=== PATIENT | female | born 1990 | race Caucasian/White ===

== ENCOUNTER 2024-04-24 08:13 | Outpatient (REF) | payer OTHER, SELFPAY ==
--- OUTSIDE RECORDS SUMMARY | 2024-04-24 08:36 | XMS_ITS | Clinical Summary ---
Author Organization [facility] Address [address] [place] [address] Care Team Providers Care Knife Glazer Name Role Phone Reggie Riggs MD Primary Care Provider [phone] Allergies Active Allergy Reactions Criticality Noted Date Comments Penicillins 07/09/2015 Medications Medication Sig Dispensed Refills Start Date End Date Status sertraline (ZOLOFT) 50 MG tablet Take 2.5 tablets (125 mg total) by mouth daily. 0 Active buPROPion (WELLBUTRIN) 100 MG tablet Take 1.5 tablets (150 mg total) by mouth 2 (two) times a day. 0 Active Active Problems No known active problems Social History Tobacco Use Types Packs/Day Years Used Date Smoking Tobacco: Light Smoker Sex and Gender Information Value Date Recorded Sex Assigned at Female 08/13/2023 12:29 AM EDT Gender Identity Not on file Sexual Orientation Not on file Job Start Date Occupation Industry Not on file Not on file Not on file Last Filed Vital Signs Vital Sign Reading Time Taken Comments Blood Pressure 126/71 08/13/2023 6:11 AM EDT Pulse 71 08/13/2023 6:11 AM EDT Temperature 36.5 ??C (97.7 ??F) 08/13/2023 6:11 AM ED T Respiratory Rate 17 08/13/2023 6:11 AM EDT Oxygen Saturation 96% 08/13/2023 6:11 AM EDT Inhaled Oxygen Concentration - - Weight 77.1 kg (170 lb) 07/09/2015 9:13 PM EDT Height 162.6 cm (5' 4 ) 07/09/2015 9:13 PM EDT Body Mass Index 29.18 07/09/2015 9:13 PM EDT Plan of Treatment Health Maintenance Due Date Last Done Comments Hepatitis B Vaccines (1 of 3 - 3-dose series) 1991 Hepatitis C Screening 1991 COVID-19 Vaccine (#1) 1991 Pneumococcal Vaccine (1 of 2 - PCV) 1997 Depression Screening 2003 Preventative Health Evaluation 2009 DTap / Tdap / Td (1 - Tdap) 2010 Cervical Cancer Screening (P ap Smear) 2012 Influenza Vaccine (#1) 2023 04/23/2018 RSV Ped < 20 months Aged Out No longe r eligible based on patient's age to complete this topic Care Teams Knife Glazer Relationship Specialty Start Date End Date Reggie Riggs MD [address] [place] [address] PCP - General Internal Medicine 07/09/15
--- OUTSIDE RECORDS SUMMARY | 2024-04-24 08:36 | XMS_ITS ---
Author Name [facility] Organization Unknown Results Test Name/Text Value Interpretation Date Range Source SQUAMOUS NO./AREA URNS LPF 3/LPF Normal [id number] 0 - 5 [facility] RBC number/area UrnS Auto 3/HPF Normal [id number] 0 - 3 [facility] WBC number/area UrnS Auto 0/HPF Normal [id number] 0 - 5 [facility] Clarity Ur Refract.auto CLEAR Normal [id number] [facility] Prot Ur Ql Strip.auto NEGATIVE Normal [id number] - [facility] Glucose Ur Ql Strip.auto NEGATIVE Normal [id number] - [facility] Nitrite Ur Ql Strip.auto NEGATIVE Normal [id number] - [facility] Hgb Ur Ql Strip.auto MODERATE Abnormal [id number] - [facility] Ketones Ur Ql Strip.auto NEGATIVE Normal [id number] - [facility] Leukocyte esterase Ur Ql Strip.auto NEGATIVE Normal [id number] - [facility] Sp Gr Ur Strip.auto 1.02 Normal [id number] 1.005 - 1.03 [facility] pH Ur Strip.auto 6 Normal [id number] 4.5 - 8 [facility] SPECIMEN SOURCE XXX URINE CLEAN CATCH Normal [id number] [facility] PROT SERPL MCNC 7.3g/dL Normal [id number] 6.4 - 8.5 [facility] BILIRUB SERPL MCNC 0.2mg/dL Below low normal [id number] 0 .3 - 1 [facility] ALBUMIN/GLOB SERPL MRTO 1.3 Normal [id number] [facility] AST SERPL [facility] 12U/L Normal [id number] 5 - 40 [facility] ALBUMIN SERPL BCG MCNC 4.1g/dL Normal [id number] 3.5 - 5 [facility] ALP SERPL-CCNC 47U/L Normal [id number] 34 - 104 [facility] ALT SERPL [facility] 10U/L Normal [id number] 7 - 52 [facility] BILIRUB DIRECT SERPL MCNC 0mg/dL Normal [id number] 0 - 0.2 [facility] CREAT SERPL [facility] 1.1mg/dL Above high normal [id number] 0. 5 - 1 [facility] CALCIUM SERPL MCNC 9.4mg/dL Normal [id number] 8.4 - 10 .2 [facility] SODIUM SERPL SCNC 137mmol/L Normal [id number] 135 - 145 [facility] ANION GAP SERPL [facility] 8mmol/L Normal [id number] 5 - 14 [facility] Glomerular filtration rate/1.73 sq M. predicted 68 Normal [id number] 60 - [facility] HCO3 SER SCNC 22mmol/L Below low normal [id number] 24 - 3 2 [facility] GLUCOSE SERPL MCNC 84mg/dL Normal [id number] 70 - 199 [facility] BUN SERPL MCNC 12mg/dL Normal [id number] 7 - 17 [facility] CHLORIDE SERPL SCNC 107mmol/L Normal [id number] 98 - 10 7 [facility] POTASSIUM SERPL SCNC 3.7mmol/L Normal [id number] 3.5 - 5.1 [facility] Amphet Ur Ql Scn NEGATIVE Normal [id number] - [facility] Barbiturates Ur Ql Scn NEGATIVE Normal [id number] - [facility] Cannabinoids Ur Ql Scn NEGATIVE Normal [id number] - [facility] BZE Ur Ql Scn NEGATIVE Normal [id number] - [facility] PLATELET NO. BLD AUTO 280K/uL Normal [id number] 150 - 450 [facility] RBC NO. BLD AUTO 4.1M/uL Below low normal [id number] 4.2 - 5.4 [facility] NUCLEATED RBC 0% Normal [id number] 0 - 1 [facility] LYMPHOCYTES NO. BLD AUTO 3.1K/uL Normal [id number] 1 - 3.2 [facility] EOSINOPHIL NO. BLD AUTO 0.4K/uL Normal [id number] 0 - 0.5 [facility] MCH RBC QN AUTO 31pg Normal [id number] 25 - 33 [facility] MCHC RBC AUTO MCNC 34.7g/dL Normal [id number] 32 - 36 [facility] MONOCYTES NFR BLD AUTO 5.3% Normal [id number] 2 - 12 [facility] IMMATURE GRANULOCYTE, ABSOLUTE 0.07k/uL Normal [id number] - 0.1 [facility] LYMPHOCYTES NFR BLD AUTO 19.9% Below low normal [id number] 20 - 48 [facility] EOSINOPHIL NFR BLD AUTO 2.3% Normal [id number] 0 - 6 [facility] HGB BLD MCNC 12.7g/dL Normal [id number] 12.5 - 16 [facility] SMH NEUTROPHILS NO. BLD AUTO 11.2K/uL Above high normal [id number] 1.8 - 7.8 [facility] WBC NO. BLD AUTO 15.6K/uL Above high normal [id number] 4 - 10.5 [facility] BASOPHILS NFR BLD AUTO 0.4% Normal [id number] 0 - 2 [facility] MONOCYTES NO. BLD AUTO 0.8K/uL Normal [id number] 0 - 0.8 [facility] MCV RBC AUTO 89.3fL Normal [id number] 78 - 100 [facility] SM NEUTROPHILS NFR BLD AUTO 71.7% Normal [id number] 44 - 74 [facility] IMMATURE GRANULOCYTE, PERCENT 0.4% Normal [id number] 0 - 1 [facility] BASOPHILS IN BLOOD BY AUTOMATED COUNT 0.1K/uL Normal [id number] 0 - 0.2 [facility] PMV BLD AUTO 10fL Normal [id number] 7.4 - 11.4 [facility] RDW RBC AUTO RTO 12.8% Normal [id number] 12.1 - 16. 2 [facility] HCT VFR BLD AUTO 36.6% Below low normal [id number] 37 - 47 [facility] History of Medication Use Medication Directions Dispensed Refills Start Date End Date Stat acetaminophen (TYLENOL) tablet 975 mg 975 mg, Oral, Once, On 08/13/23 at 0845, For 1 dose 08/13/2023 08/13/2023 completed sertraline (ZOLOFT) 50 MG tablet Take 2.5 tablets (125 mg total) by mouth daily. active LORazepam (ATIVAN) tablet 1 mg 1 mg, Oral, Once, On 08/12/23 at 2330, For 1 dose 08/13/2023 08/13/2023 completed Problems Problem Status Onset Date Problem Type Date of Resoluti on Source Depression active EncounterDiagnosisAct REPLACED BY [facility] Anxiety active EncounterDiagnosisAct REPLACED BY [facility]
--- OUTSIDE RECORDS SUMMARY | 2024-04-24 08:36 | XMS_ITS | Data Portability ---
Author Organization [place] - [facility], [facility] Address [id number] [place] [address] Assessment Encounter Date Assessment Date Assessment LastModified by Organization Details LastModified Time 08/24/2014 08/24/2014 24 yo female her for colpo after recent ASCUS pap, hx of LEIGHA 1-2 Not available 08/24/2014 13:56:25 01/28/2015 01/28/2015 24 yo G0 here for annual/pap Not available 01/28/2015 14:32:08 03/12/2015 03/12/2015 24 yo female ASCUS, HPV positive, here for colpo, f/u ECC and biospy Not available 03/12/2015 10:57:06 Plan of Treatment Reminders Order Date Submit Date Provider Last Modified By Organization Details Last Modified Time Details Appointments None recorded. Lab surgical pathology study - #3, ECC 2015 016 DANETTE Not available 6 16:29:18 pap, IG + reflex HPV 2014 015 DANETTE Not available 5 14:50:28 surgical pathology study 2014 015 DANETTE Not available 5 10:24:25 pap, IG + reflex HPV 2014 015 DANETTE Not available 5 11:06:21 HPV genotypes 16, 18, 45, unspecifie d specimen 2014 015 DANETTE Not available 5 11:06:21 Referral None recorded. Procedures None recorded. Surgeries None recorded. Imaging None recorded. Medication Orders Viorele (28) 0.15 mg-0.02 mg (21)/0.01 mg (5) tablet 2014 015 INTERFACE [id number], [address], [place], [address], 5 14:34:59 Patient TargetsNo targets recorded. Patient Instructions Encounter Date Encounter Id Patient Instructions Last Modified By Organization Details Last Modified Time 01/28/2015 [id number] Patient presents for a well woman exam. Her history is unremarkable and her exam is normal. She is less than 26 years old so she has received GC/Chl screening and Pap smear screening as per guidelines of every three years for cytology review with reflex HPV testing if the results are ASCUS. She has been counseled regarding control and safe sex as well as monthly self-breast exams. She has been told to reschedule a well woman Corporate Operations Compliance Manager exam in one year and to call us with any question or concerns regarding her health and welfare. Not available 01/28/2015 14:32:08 Reason for Referral None Reported. Results Created Date Observation Date Name Description Value Unit Range Abnormal Flag Note LastModifiedBy Organization Detail LastModifiedTime 07/29/19 15 07/29/2014 pap, IG + refle x HPV report abnormal GYNEC OLOGI UMESH CYTOL OGY REPOR T THINP REP PAP TEST WITH HPV REFLE X SPECI MEN ADEQU ACY: SATIS FACTO RY FOR EVALU ATION ; ENDOC ERVIC AL/TR ANSFO RMATI ON ZONE COMPO NENT PRESE NT. INTER PRETA TION: AT YPICA L SQUAM OUS [place] [id number] . Elect livier reyes Gladis d Out: MD SARAHI BARBER Y, [place]( [place]) CLINI UMESH INFOR MATIO N: LMP: NI Sourc e: CERVI UMESH Numbe r of vials /slid es submi tted 1 Diagn osis / ICD-9 795.0 4 Abnor mal Pap Date NI Autom ated presc reeni ng of all liqui d based speci mens is perfo rmed by the ThinP rep Imagi ng Syste m, unles s other bell state d. The Pap test is a scree drake test with an inher ent false negat josefa rate. Testi ng perfo rmed at [facility] , [address], [place] [address] CLIA [id number] CL-PO [id number]. Not Available [facility] [address] [place], [address], 07/31/2014 11:06:21 07/29/19 15 07/30/2014 HPV DNA, high- risk HPV result Positi ve negati ve abnormal APTIM A HPV assay detec ts 14 high risk HPV types (HPV 16,18 ,31,3 3,35, 39,45 , 51,52 ,56,5 8,59, 66,68 ). The assay is FDA appro abigail for testi ng ThinP rep liqui d Pap vials but not FDA appro abigail for detec ting HPV in SureP ath liqui d Pap speci mens. In-ho use valid ation has shown the assay can detec t all HPV types from this sourc e. Not Available [facility] [address] [place], [address], 07/31/2014 11:06:21 07/29/19 15 07/31/2014 HPV genot ypes 16, 18, 45, unspe cifie d speci men HPV genotype 16 Negati ve negati ve Not Available [facility] [address] [place], [address], 07/31/2014 11:06:21 07/29/19 15 07/31/2014 HPV genot ypes 16, 18, 45, unspe cifie d speci men HPV genotype 18/45 Negati ve negati ve Not Available [facility] [address] [place], [address], 07/31/2014 11:06:21 07/29/19 15 07/31/2014 HPV genot ypes 16, 18, 45, unspe cifie d speci men comment Test perfo rmed by Holog ic APTIM A HPV 16,18 /45 assay which is based on nucle ic acid ampli ficat ion for detec tion of E6/E7 viral messe nger RNA of human papil lomav irus types 16 and 18/45 in cervi umesh speci mens. Not Available [facility] [address] [employer], [place], [address], 07/31/2014 11:06:21 08/25/19 15 08/26/2014 surgi umesh patho logy study report Surgi umesh Patho logy Repor t DIAGN OSIS UTERI NE CERVI X, BIOPS Y: SMALL FRAGM ENT OF UNREM ARKAB LE ENDOC ERVIC AL GLAND ULAR MUCOS A. NEGAT JOSEFA FOR DYSPL HUGH (SEE COMME NT). El ectro nical ly Gladis d Out * BJ MILLER MD COMME NT Patie nt's previ ous Pap smear ([id number]) was inter prete d as ASCUS with posit josefa HPV DNA testi ng. Luis nued f[place]. [id number] Clini umesh Diagn osis and Histo ry: 795.0 1 Papan icola ou smear of cervi x with atypi umesh squam ous cells of undet ermin ed signi fican ce (ASCU S). Tissu e(s) Submi tted: CX BX / COLPO Gross Descr iptio n: The conta iner is label ed with the patie nt's name, Dotty Perrin ea. Speci men type indic ated on conta iner as biops y colpo . The speci men is recei abigail in forma ovidio and consi sts of one piece of soft mcfarlane tissu e mixed with mucus measu ring 0.4 x 0.3 x 0.1 cm, submi tted in toto in one casse tte label ed 1A. [place] Testi ng perfo rmed at [facility] , [address], [place] [address] CLIA [id number] CL-PO [id number]. Not Available [facility] [address] [place], [address], 08/26/2014 10:24:25 01/29/20 15 02/01/2015 pap, IG + refle x HPV report abnormal GYNEC OLOGI UMESH CYTOL OGY REPOR T THINP REP PAP TEST WITH HPV REFLE X SPECI MEN ADEQU ACY: SATIS FACTO RY FOR EVALU ATION ; ENDOC ERVIC AL/TR ANSFO RMATI ON ZONE COMPO NENT PRESE NT. INTER PRETA TION: AT YPICA L SQUAM OUS CELLS [place] [address] . Elect livier reyes Gladis d Out: MD NYLA LAWRENCE IN [place], [place]( CP) CLINI UMESH INFOR CAM N: LMP: NI Sourc e CERVI X Numbe r of vials /slid es submi tted 1 Diagn osis / ICD CODE Z01.4 19 Abnor mal Pap Date NI Autom ated presc reeni ng of all liqui d based speci mens is perfo rmed by the ThinP rep Imagi ng Syste m, unles s other bell state d. The Pap test is a scree drake test with an inher ent false negat josefa rate. Testi ng perfo rmed at [facility] t [facility] , [address] [place] [address] CLIA [id number] CL-PO [id number]. Not Available [facility] [address] [place], [address], 02/02/2015 14:50:53 01/29/20 15 02/02/2015 pap, IG + refle x HPV HPV result Positi ve negati ve abnormal APTIM A HPV assay detec ts 14 high risk HPV types (HPV 16,18 ,31,3 3,35, 39,45 , 51,52 ,56,5 8,59, 66,68 ). The assay is FDA appro abigail for testi ng ThinP rep liqui d Pap vials but not FDA appro abigail for detec ting HPV in SureP ath liqui d Pap speci mens. In-ho use valid ation has shown the assay can detec t all HPV types from this sourc e. Not Available [facility] [address] [facility], [place], [address], 02/02/2015 14:50:53 03/12/19 16 03/15/2015 surgi umesh patho logy study report Surgi umesh Patho logy Repor t DIAGN OSIS #1-UT ERINE CERVI X, BIOPS Y AT 2 O'RUBIO CK: INFLA MED ENDOC ERVIC AL GLAND ULAR MUCOS A, NEGAT JOSEFA FOR DYSPL HUGH. #2-UT ERINE CERVI X, BIOPS Y AT 7 O'RUBIO CK: INFLA MED ENDOC ERVIC AL GLAND ULAR MUCOS A, NEGAT JOSEFA FOR DYSPL HUGH. #3-EN DOCER VICAL CURET TINGS : INSUF FICIE NT QUANT ITY OF TISSU E FOR DIAGN OSTIC EVALU ATION . THE TISSU E DID NOT SURVI VE PROCE SSING . SEE COMME NT. El ectro nical ly Gladis d Out * RENA LI MD COMME NT Comme nt: Revie w of the prece ding Pap test ([id number] from 2014) shows atypi umesh squam ous cells that are not repre sente d in the biops y. Also, the detec tion of high- risk HPV DNA warra nts luis nued clini umesh follo wup. 00780 x 3 Clini umesh Diagn osis and Histo ry: R87.6 10 Atypi umesh squam ous cells of undet ermin ed signi fican ce on cytol ogic smear of cervi x (ASC- US). Tissu e(s) Submi tted: 1: CX BX 2 O'RUBIO CK 2: CX BX 7 O'RUBIO CK 3: ENDOC ERVIC AL CURET TING Gross Descr iptio n: #1 Conta iner is label ed with patie nt's name, Dotty Perrin ea. Noted on conta iner, 2 o'rubio ck biops y. The speci men is recei abigail in forma ovidio and consi sts of one piece of soft, mcfarlane tissu e measu ring 0.4 x 0.4 x 0.2 cm, which was submi tted in toto in one casse tte label ed 1A. #2 Conta iner is label ed with gemma nt's name. Noted on conta iner, 7 o'rubio ck biops y. The speci men is recei abigail in forma ovidio and consi sts of one piece , plus mucus , of soft mcfarlane tissu e measu ring 0.3 x 0.3 x 0.2 cm, which was submi tted in toto in one casse tte label ed 2A. #3 Conta iner is label ed with patiedward nt's name. Noted on req. endoc ervic al. The speci men is recei abigail in forma ovidio and consi sts of scant , irreg ular tissu e fragm ents admix ed with mucus and blood measu ring .1 cc, which was filte red and submi tted in toto in one casse tte label ed 3A. The speci men may not survi ve proce ssing . [place] Testi ng perfo rmed at [facility] , [address] [place] [address] CLIA [id number] CL-PO [id number] 7. Not Available [facility] [address] [place] [address], [facility] 03/15/2015 16:29:18 Result Notes Documentation Provider Name and Address Organization Details Recorded Time Pap, Ig + Reflex Hpv : ASCUS Pap/positive HPV Daina Buchanan [facility] 02/11/2015 15:42:14 Problems Name Problem SNOMED Code Status Onset Date Resolution Date Notes Provider Name and Address Organization Details Recorded Time Cervicovaginal cytology: High grade squamous intraepithelia l lesion or carcinoma 751629517 Active 2013 MARK MUIR MD [address] [place], [place] [address] 6 10:52:45 Migraine 76902273 Active 2013 MARK MUIR MD [address] [place] [address], [address] [place] [address], [address], [facility] 6 10:52:45 Atypical squamous cells of undetermined significance on cervical Papanicolaou smear 913722305 Active MARK MUIR MD [address], [address] [place] [address] 4, [facility] 6 10:57:05 Anxiety state 464445510 Active 2011 MARK MUIR MD [address], [address] [place] [address] 4, [facility] 6 10:52:45 Depressive disorder 91945748 Active 2007 MARK MUIR MD [address], [address] [place] [address] 4, [facility] 6 10:52:45 Problem Notes None recorded. Procedures Surgical History Date Name Laterality Status Provider Name and Address Organization Details Recorded Time 6 Colposcopy Procedure Note completed MARK MUIR MD [address] [place] [address], [address] [place] [address], [facility] 03/12/2015 10:56:12 5 Colposcopy Procedure Note completed MARK MUIR MD [address] [place] [address], [address] [place] [address], [facility] 08/24/2014 13:55:48 5 [id number] completed MARK MUIR MD [address] [place] [address], [address] [place] [address], [facility] 07/28/2014 13:13:18 4 Date of Last Pap Smear completed Kumar Marcelino [facility] 07/28/2014 09:54:43 Imaging Results None recorded. Procedure Notes None recorded. Medical Equipment None Reported. Allergies Allergen ID Allergen Name Allergen Category Reaction Reaction Severity Criticality Documentation Date Start Date Code Code System Note Provider Name and Address Organization Details Recorded Time 318958 Product containin g penicilli n (product) medicatio n Not available Not available Not available 06/20/20142007 86857 8001 SNOMED Not Available [facility] 5 14:45:29 Medications Name Sig Start Date Stop Date Status Note LastModified by Organization Details LastModified Time Prescript ion - New active Klonopin 0.5mg Not Available Not Available Not Available ciproflox acin 500 mg tablet active Not Available Not Available No t Available Metrogel Vaginal 0.75 % (37.5 mg/5 gram) INSERT 1 APPLICAT ORFUL BY VAGINAL ROUTE EVERY DAY FOR 5 DAYS AT BEDTIME 04/14 completed Not Available Not Available Not Available Depo-Prov era 150 mg/mL intramusc ular suspensio n INJECT 1 MILLILIT ER (150MG) BY INTRAMUS CULAR ROUTE EVERY 3 MONTHS 10/04 completed Not Available Not Available Not Available Prozac 20 mg capsule TAKE BY ORAL ROUTE 2 TIMES EVERY DAY 03/05 completed PRESCRIB ED ELSEWHER E Not Available Not Available Not Available mirtazapi ne 15 mg tablet TAKE 1 TABLET (15MG) BY ORAL ROUTE EVERY DAY BEFORE BEDTIME active Not Available Not Available No t Available Prozac 10 mg capsule TAKE 2 CAPSULE (20MG) BY ORAL ROUTE EVERY DAY 10/04 completed PRESCRIB ED ELSEWHER E Not Available Not Available Not Available sertralin e 50 mg tablet TAKE 1 TABLET BY ORAL ROUTE EVERY DAY active Not Available Not Available No t Available Viorele (28) 0.15 mg-0.02 mg (21)/0.01 mg (5) tablet TAKE 1 TABLET BY ORAL ROUTE EVERY DAY 2015 active Not Available Not Available Not Avai lable Vitals Date Recorded Body weight Systolic blood pressure Diastolic blood pressure Provider Name and Address Organization Details Last Updated DateTime 08/24/2014 19207.9639 4 g 112 mm[Hg] 80 mm[Hg] Janelle JEFF - [facility] 08/24/2014 13:38:16 Date Recorded Body weight Body mass index (BMI) Body height Systolic blood pressure Diastolic blood pressure Provider Name and Address Organization Details Last Updated DateTime 01/28/2015 21990.74 105 g 27.5 kg/m2 165.1 cm 124 mm[Hg] 80 mm[Hg] Omaira Lopez [facility] 5 14:17:42 Date Recorded Body weight Systolic blood pressure Diastolic blood pressure Provider Name and Address Organization Details Last Updated DateTime 03/12/2015 95431.7410 5 g 100 mm[Hg] 82 mm[Hg] [email or web address] [address] [facility], [address]rd Floor, [place], [address], [facility] 03/12/2015 10:24:11 Date Recorded Body weight Systolic blood pressure Diastolic blood pressure Provider Name and Address Organization Details Last Updated DateTime 07/28/2014 26778.5563 1 g 126 mm[Hg] 82 mm[Hg] Daina Dewayne [facility] 07/28/2014 12:59:33 Social History Question Answer Notes LastModified by Organizat ion Details LastModified Time Tobacco Smoking Status Current Every Day Smoker Kumar martinez, [facility] 07/28/2014 09:54:43 What Is Your Level Of Alcohol Consumption? Occasional Information not available 01/28/2015 How Much Tobacco Do You Smoke? 1 PPD omanfredi Information not available 07/28/2014 Sex: Unknown Functional Status Question Answer Note LastModified by Organization D etails LastModified Time What is your exercise level? None Information not available 01/28/2015 Mental Status None recorded. Family History Relationship Description Onset Age of this Age Resolved Age Notes LastModified by Organization Details LastModified Time Father Disorder of thyroid gland [email or web address] Not available 2014 14:13:46 Maternal Grandfather Hypertensive disorder lbooska Not available 2014 14:13:46 Maternal Grandmother Multiple myeloma lbooska Not available 2014 14:13:46 Maternal Grandmother Osteoporosis lbooska Not available 1 03/31/2014 14:13:46 Paternal Grandfather Hypertensive disorder lbooska Not available 2014 14:13:46 Paternal Grandfather Heart disease lbooska Not available 2014 14:13:46 Medical History Condition Response Benign breast disease Y Depression Y Anxiety Disorder Y Gynecological History Statement/Question Response Date of Last Pap Smear 12/08/2013 Obstetrics History GPAL:G 0 P 0 0 0 0 Immunizations Vaccine Type Date Status Note Provider Nam e and Address Organization Details Recorded Time HPV, quadrivalent 9 completed Not Available [facility] 06/22/2014 02:26:14 HPV, quadrivalent 8 completed Not Available [facility] 06/22/2014 02:26:14 HPV, quadrivalent 9 completed Not Available [facility] 06/22/2014 02:26:14 Past Encounters Encounter ID Performer Location Encounter Start Date Encounter Closed Date Diagnosis/Indication Diagnosis SNOMED-CT Code Diagnosis ICD10 Code Diagnosis Note [id number] [facility] [address] [place] [address] 07/28/2014 12:44:35 07/28/2014 13:27:38 Cervicovaginal cytology: High grade squamous intraepithelial lesion or carcinoma [id number] [facility] [address] [place] [address] 08/24/2014 13:14:02 08/25/2014 11:08:49 Atypical squamous cells of undetermined significance on cervical Papanicolaou smear 355977871 [id number] MARK MUIR MD [facility] [address] [place] [address] 01/28/2015 14:05:23 02/02/2015 11:00:46 Gynecologic examination 26083151 Z01.542 [id number] MARK MUIR MD [facility] [address] [place] [address] 03/12/2015 10:13:50 03/12/2015 15:24:55 Atypical squamous cells of undetermined significance on cervical Papanicolaou smear 118821750 R87.610 Health Concerns Section Related Observation LastModified by Organization Detai ls LastModified Time None Recorded Concern Status LastModified by Organization Details LastModified Time None Recorded Advance Directives Directive None Recorded Payers Encounter Date Sequence Insurance Name Policy Number Policy Eid Covered Member ID Eid Member ID Guarantor Name 07/28/2014 1 [employer] - CHOICE (POS II) [id number] Carri Weldon [id number] Ira Weldon 08/24/2014 1 [employer] - CHOICE (POS II) [id number] Carri Fisherride [id number] Ira Kirkbride 01/28/2015 1 [employer] - CHOICE (POS II) [id number] Carri Troncosokbride [id number] Ira Kirkbride 03/12/2015 1 [employer] - CHOICE (POS II) [id number] Carri Troncosokbride [id number] Ira Kirkbride Notes Date Note Type Note Provider Name and Address Organization Details Recorded Time 07/28/2014 text/html 24 yo female wit h hx pap was HGSIL. cervical biopsy LEIGHA 1-2, ECC neg. her for repeat pap MARK MUIR MD [address] [place] [address], [address] [place], [address], [facility] 07/28/2014 13:14:48 08/24/2014 text/html 24 yo female wit h history of LEIGHA 1-2, ECC neg 12/09. .ASCUS pap 08/10. pt had a 6 month f/u due to metaplasia on path findings, discussed with pathologist, thus close follow up. pt is currently a smoker, discussed cutting back with a goal of quitting. 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 MARK MUIR MD [address] [place] [address], [address] [place], [address], [facility] 08/24/2014 15:19:31 01/28/2015 text/html [facility] Annual GYNReported bypatient.Menstrua l cycle:Normal menses Urinary symptoms:No hematuria; No incontinence Vulva:No genital lesion Vagina:Normal vaginal discharge Breast:No breast pain; No breast lump; No nipple discharge Sexual complaints:No sexual complaints; No pain during intercourse; Normal libido Psychological symptoms:No anxiety; No PMDD;Depression Preventive measures:Encourage self breast examination; Encourage regular exercise; Encourage no tobacco use; Followed with Q3 year pap smear and high risk HPV typing 24 yo G0 for annual, hx of abn pap cannot rule out HGSIL 2013, f/u neg, rpt pap today. wishes to continue ocp. hx of depression on Zoloft, thinks she needs a higher dose, will f/u with pcp. smoking 5 cig/day down from 1ppd MARK MUIR MD [address] [facility], [address]rd Floor, [place], [address], [facility] 01/28/2015 14:32:35 03/12/2015 text/html 24 yo female wit h hx of ASCUS HPV pap 02/09, previous pap 12/09 cannot rule out HGSIL, colpo neg for LEIGHA 2 or 3 in 2013, her for colposcopy, bx 2, 7oclock ECC. encouraged smoking cessation, given hx of abn pap MARK MUIR MD [address] [facility], [address], [place], [address], [facility] 03/12/2015 11:02:46 OBGyn Episode No OBEpisode recorded.
--- OUTSIDE RECORDS SUMMARY | 2024-04-24 08:36 | XMS_ITS | Clinical Summary ---
Author Organization [facility] ity Address [address] [place] [address] Care Team Providers Care Seed Analyst Name Role Phone Reggie Riggs MD Primary Care Provider [phone] Medical History Medical History Date Comments Anxiety DX:Anxiety Depressed DX:Depressed Social History Tobacco Use Types Packs/Day Years Used Date Smoking Tobacco: Light Smoker Comments Unknown Sex and Gender Information Value Date Recorded Sex Assigned at Not on file Legal Sex Female 9:23 PM EST Gender Identity Not on file Sexual Orientation Not on file Obstetrics History Plan of Treatment Health Maintenance Due Date Last Done Comments DTaP,Tdap,and Td Vaccines (1 - Tdap) 2010 Hepatitis B Vaccines (1 of 3 - 19+ 3-dose series) 2010 Pneumococcal Vaccine: Pediat rics (0 to 5 Years) and At-Risk Patients (6 to 64 Years) (1 of 2 - PCV) 2010 Cervical Cancer Screening: P ap Smear 2012 Cholesterol Screening (Lipid Panel) 01/28/2022 Depression Screening 01/28/2022 HIV Screening 01/28/2022 Hepatitis C Screening 01/28/2022 Social Influencers of Health Screening 01/28/2022 COVID-19 Vaccine (2023-2 5 season) 2023 Influenza Vaccine (#1) 2023 HIB Vaccines Aged Out No longer eligi ble based on patient's age to complete this topic HPV Vaccines Aged Out No longer eligi ble based on patient's age to complete this topic Hepatitis A Vaccines Aged Out No long er eligible based on patient's age to complete this topic IPV Vaccines Aged Out No longer eligi ble based on patient's age to complete this topic MMR Vaccines Aged Out No longer eligi ble based on patient's age to complete this topic Meningococcal ACWY Vaccine Aged Out N o longer eligible based on patient's age to complete this topic Meningococcal B Vacine Aged Out No lo nger eligible based on patient's age to complete this topic RSV Immunization Patients Un emiliano 20 months Aged Out No longer eligible b ased on patient's age to complete this topic Varicella Vaccines Aged Out No longer eligible based on patient's age to complete this topic Care Teams Seed Analyst Relationship Specialty Start Date End Date Reggie Riggs MD [address] [facility] [address] [place] [id number] PCP - General Internal Medicine 07/09/15
[2024-04-24 08:49] LABS: MANUAL DIFF FLAG NO
[2024-04-24 09:20] LABS: Basophils Absolute Auto 0.1 X10*3/uL (0.0-0.2); Basophils Percent Auto 0.6 % (0-2); Eosinophils Absolute Auto 0.3 X10*3/uL (0.0-0.4); Eosinophils Percent Auto 2.6 % (0-4); Hematocrit 38.6 % (37.0-47.0); Hemoglobin 13.3 g/dl (12.0-16.0); Imm Gran Abs Auto 0.03 X10*3/uL (0.00-0.03); Imm Gran Pct Auto 0.3 % (0.0-0.4); Lymphocytes Absolute Auto 2.7 X10*3/uL (1.2-4.9); Lymphocytes Percent Auto 24.8 % (20-40); Mean Corpuscular HGB Conc 34.5 g/dl (31.0-35.0); Mean Corpuscular Hemoglobin 31.1 pg (27.0-33.0); Mean Corpuscular Volume 90.2 fL (80.0-98.0); Mean Platelet Volume 10.9 fL (9.4-12.3); Monocytes Absolute Auto 0.6 X10*3/uL (0.1-1.2); Monocytes Percent Auto 5.6 % (2-11); Neutrophils Absolute Auto 7.2 x10*3/uL (2.0-8.3); Neutrophils Percent Auto 66.1 % (45-73); Platelet Count 307 X10*3/uL (160-400); Red Blood Count 4.28 X10*6/uL (4.20-5.50); Red Cell Distribution Width 13.2 % (11.0-16.0); White Blood Count 10.9 X10*3/uL (4.8-10.8)
[2024-04-24 09:27] LABS: UPreg QC Valid YES; Urine Pregnancy NEGATIVE (NEGATIVE)
[2024-04-24 09:32] LABS: Appearance Urine Clear; Color Urine Yellow; Glucose Urine UA Negative (Negative); Leukocyte Esterase Urine Negative (Negative); Nitrite Urine Negative (Negative); PH 5.5 (5.0-9.0); UMIC TRIGGER UA YES; Urine Blood Moderate (2+) (Negative); Urine Ketones Negative (Negative); Urine Protein Negative (Neg-Trace)
[2024-04-24 09:39] LABS: Estimated Average Glucose 97 mg/dL; Hemoglobin A1C 108.7506 umol/L; Total Hemoglobin (HGBA1C) 3444.8736 umol/L
[2024-04-24 09:39] LABS: Bacteria Urine None Seen (None Seen); Hyaline Casts Urine 0-2 /LPF (0-2); RBC Urine 0-2 /HPF (0-2); Squamous Epithelial Cell Urine 0-2 /HPF (0-2); WBC Urine 0-5 /HPF (0-5)
[2024-04-24 09:54] LABS: Rheumatoid Factor < 13.0 IU/mL (<15.0)
[2024-04-24 09:59] LABS: Erythrocyte Sedimentation Rate 12 MM/HR (0-20)
[2024-04-24 10:02] LABS: Parathyroid Hormone Intact 60.3 pg/mL (8.7-77.1)
[2024-04-24 10:05] LABS: Alanine Aminotransferase 29 U/L (0-31); Albumin Level 4.4 g/dL (3.5-5.0); Alkaline Phosphatase 60 U/L (39-117); Anion Gap 11 (12-20); Aspartate Amino Transferase 20 U/L (5-31); Bilirubin Total 0.2 mg/dL (0.0-1.0); Blood Urea Nitrogen 12 mg/dL (9-16); Calcium 9.4 mg/dL (8.4-10.2); Carbon Dioxide 23 mmol/L (22-29); Chloride 109 mmol/L (96-108); Cholesterol 183 mg/dL (<200); Estimated Glomerular Filt Rate > 60; Glucose Fasting 95 mg/dL (60-99); HDL Cholesterol 41 mg/dL (>40); Iron 37 mcg/dL (30-160); LDL Cholesterol Calculated 126 mg/dL (<100); Magnesium 2.1 mg/dL (1.6-2.6); Percent Iron Saturation 13 % (15-50); Phosphorus 3.4 mg/dL (2.7-4.5); Sodium 139 mmol/L (135-145); Total Iron Binding Capacity 276 mcg/dL (228-428); Triglycerides 82 mg/dL (<150); Unsaturated Iron Binding 239 ug/dL
[2024-04-24 10:24] LABS: Free T4 (Free Thyroxine) 0.84 ng/dL (0.71-1.85); Thyroid Stimulating Hormone 2.61 uIU/mL (0.32-4.0); Vitamin D 25-OH Total 8.3 ng/mL (>30)
[2024-04-24 10:28] LABS: Vitamin B12 1057 pg/mL (200-900)
[2024-04-25 18:53] LABS: Homocysteine 12.6 umol/L (<10.4)
[2024-04-28 05:58] LABS: Methylmalonic Acid 82 nmol/L (55-335)
[2024-04-29 14:28] LABS: ANA Pattern 2 Nuclear, Speckled; ANA Titer 2 1:40 titer; Anti Nuclear Antibody Pattern Nuclear, Homogeneous; Anti Nuclear Antibody Screen POSITIVE (NEGATIVE)
[2024-05-03 07:44] LABS: Vitamin B1 14 nmol/L (8-30)
== END 2024-04-24 08:14 | disposition home or self-care (01) ==
LOC: HO.LAB 08:13
PROVIDERS: PCP Internal Medicine; Visit Provider Psychiatry & Neurology Psychiatry
DX: F39 Unspecified mood [affective] disorder (principal); F59 Unspecified behavioral syndromes associated with physiological disturbances and physical factors; F41.9 Anxiety disorder, unspecified; Z13.1 Encounter for screening for diabetes mellitus
CPT/HCPCS: 36415; 80053; 80061; 81001; 81025; 82306; 82607; 82746; 83036; 83090; 83540; 83735; 83921; 83970; 84100; 84425; 84439; 84443; 84550; 85025; 85652; 86038; 86039; 86431

== ENCOUNTER 2024-04-29 12:15 | Outpatient (RCR) | payer OTHER, SELFPAY ==
[2024-04-16 09:40] VITALS: BMI 32.8
[2024-04-16 09:41] VITALS: BP 116/70; PULSE 80; TEMP 37.4
--- NOTE | 2024-04-16 14:16 | PC.ADMIT ---
Patient is a 34 year old female who was referred to [facility] by [facility] ER crisis team. Patient self presented to crisis while at work at [employer] d/t increased depression, anxiety, and PTSD sxs. Patient report stresses include challenges with her 6 year old daughter who struggles with Autism and 6 year old child who she describes is going through the, terrible twos . She also reports during the holidays she and her were arguing more. She also stated she struggles with past trauma and has abandonment issues feelng her family is going to leave her even though on some level she does not think this is true. Patient reports she changed her work schedule to working mostly weekends in order to attend [facility]. Patient is alert and oriented x4. She is calm and cooperative. She presented with depressed mood and anxious affect. She denied SI, no HI. She was given a copy of her safety plan if needed. She denied having any issues with substances use. She does reports smoking cigarettes one PPD. She does not want to quit at this time however I gave her information/education about smoking cessation when she is ready. She reports she eventually like to quit for her health and for financial reasons. She reports adverse effects from Wellbutrin, nicotine gum and lozengers. Patient's medications reconciled with patient and patient's pharmacy. Patient reports taking medications as prescribed. Medication education provided. Patient is interested in medication changes while at [facility].
--- NOTE | 2024-04-17 15:15 | HO.PHP ---
Client's case has been opened and reviewed in team.
--- NOTE | 2024-04-18 14:20 | HO.PHP ---
PHP staff member faxed over the referral for a med provider at the [facility] location in [place]. PHP staff member is awaiting on a phone call with the scheduled appointment dates and times.
--- NOTE | 2024-04-18 18:39 | HO.PS.ADMBH ---
HPI Date of Service: 04/18/24 Chief Complaint: unspecied anxiety d/o Sources of Information: patient interviewed, chart reviewed and crisis/core team assessment reviewed HPI Narrative: This is the first PHP admission for this employed, 34 yo female with history of anxiety, depression who was referred by [facility] for recent worsening of mood, anxiety, impacting her ability to function and cope with stress. ?It is been a lot of anxiety and depression for as long as I can remember my mental health relapsed since being in the ICU. I just been feeling not worthy. I'm unable to function, a lot of anhedonia and just being paralyzed from anxiety, it has been particularly bad in the past month. I never want to feel like this. .. just a lot of self sabotage . Says she spends a lot of time getting into my head anticiptory anxiety, fears, and then projecting on other people and I am usually wrong . She says she has been assuming the worsen in others, assuming they dont care or just doing a lot of projecting of her own insecurities, and appears to have insight into her thoughts and behaviors. She noticed she was having more problems since the holidays, me and my have been having a hard time getting along we also have a lot of stress with young children, our 6-year-old is autistic and our 2 year old is in early intervention (for developmental delays). Appetite has been fair she has been eating ?okay there is a remote history of bulimia in high school but that had stopped in college was just periods of poor appetite on and off usually related to stress no change in her weight sleep is reportedly fine she denies any SI no issues with irritability or aggression denies any history of AH or VH which she reports seldom drinking, denies any alcohol or substance abuse history. she is currently on 125 mg of Zoloft and appears to tolerate this well has been some has been helpful in past is not sure how helpful it is at the moment Past Psychiatric History: No previous IPLOC, PHP, respite or detox admissions SA: denies SHB: denies EDB: remote hx of bulemia in HS, sporadic restrictive behaviors and periods of low appetite in college, Denies EDB in recent years Previous trials: Prozac (in HS), Remeron, (angry), Buspar (brain zaps), Wellbutrin XL (felt worse, SI, agitated), hydroxyzine (sedating), Benadryl, Ativan a few times as prn for panic sx, Zoloft (current) h/o of BCPs being helpful for mood in past, although toward end of that time period, some of depression sx were returning and then ended up getting off BCPs, she is now on an IUD No prior SNRI trials, no mood stabilizers CURRENT MEDICATIONS: sertraline 125 mg qd Tylenol prn ibuprofen PMFSH Medical History (Updated 04/22/24 @ 12:11 by Bhumi Coronado MD) Anemia Joint pain Narrative: Struggles with joint and muscle pain Joint pain in hips ankles consistently, sometimes elbows and shoulders generalized myalgias, sometimes related to stress other times seems random Fatigue History of anemia Status post LEEP procedure, has been cleared by [employer] Denies seizures Denies concussions or TBI h/o BCP x 20 yrs - is sexually active (on IUD) LMP 4 weeks ago on 03/21 Ht: 5'5 Wt: 195 lbs ALL: PCN, Wellbutrin (AE: SI, agitation), nicotine gum Family History: Alcohol issues in both parents, especially her mother Social History: , 2 children ages 6 and 2 Lives at home with family Employed, works in ICU as RN at [employer] Substance History: alcohol use: seldom drinks alcohol, no more than 3 to 4 times a year, denies any other substance use Diagnostics Vital Signs (24Hr): BMI result Body Mass Index 32.8 Meds/Allergies Meds Home Medications ?Medication ?Instructions ?Recorded ?Confirmed ?Type acetaminophen 500 mg tablet 1,000 mg PO Q6H PRN Pain 04/16/24 04/16/24 History ibuprofen 800 mg tablet 800 mg PO Q6H PRN Pain 04/16/24 04/16/24 History sertraline 100 mg tablet 100 mg PO DAILY 04/16/24 04/16/24 History sertraline 25 mg tablet 25 mg PO DAILY 04/16/24 04/16/24 History Allergies Allergies Allergy/AdvReac Type Severity Reaction Status Date / Time Penicillins [PCN] Allergy Rash Verified 04/16/24 09:40 bupropion [From Wellbutrin] AdvReac Suicidal Verified 04/16/24 14:24 thoughts. Nicotine gum AdvReac Throat Uncoded 04/16/24 14:24 burning sensation. Nicotine Lozengers AdvReac Throat Uncoded 04/16/24 14:24 burning sensation. Mental Status Exam Mental Status Exam Narrative: Alert, oriented, in no acute distress. Calm, cooperative, engaged. No psychomotor agitation or neurovegetative retardation. Eye contact maintained. Mood anxious, affect variable, mood congruent. Speech normal. Thought process linear, coherent. Thought content related to stressors, denies any hopelessness or SI. Denies any aggressive ideation or HI. No paranoia or delusional content elicited. No evidence of psychosis. Insight and judgment - fair but adequate. Assessment & Plan Assessment & Plan (1) MDD (major depressive disorder): Status: Acute Code(s): F32.9 - Major depressive disorder, single episode, unspecified (2) Eating disorder: Status: Acute Code(s): F50.9 - Eating disorder, unspecified (3) Anxiety: Status: Acute Code(s): F41.9 - Anxiety disorder, unspecified Plan Admit to [facility] VS reviewed: cali, BP 116/70;?80 bpm continue other regular medications?- sertraline 125 mg qd may augmentation with a TCA or with Lyrica which would address anxiety, pain or switching to an SNRI or Savella less likely considerations would include modafinil if helpful to augment mood, energy Routine lab work to check TFTs, AI panel, PTH, nutritional panel EKG, routine for baseline QTc for medication considerations as indicated UDS as indicated MassPat reviewed Continue to monitor as per protocol Patient educated on: diagnosis, medication risk/benefits and medical condition Informed Consent: understands Reason for continued partial hosp. stay Substantial Risk for: inability to function and med/psych decompensation Certification I certify that partial hospital treatment is medically necessary due to the symptoms and problems resulting from the patient's mental illness and the failure to treat the patient at the partial hospital level of care would likely result in the patient requiring inpatient psychiatric care which could not be prevented at a less intensive level of care. Time Spent With Patient Time: Total time managing care of this patient today __90__ minutes.
--- NOTE | 2024-04-21 07:33 | HO.PHP ---
[facility] staff member received the appointment dates and times from [facility]: Ira has an intake appointment scheduled on May 06, 2024 at 10 AM with Cortney Marroquin at [address] [place] [address], in [place], [place] . Ira has a med provider appointment scheduled for May 30, 2024 at 9 AM with Scar Yeager via telehealth.
--- NOTE | 2024-04-22 08:41 | HO.PHP ---
Ira left a voicemail stating that she won't be in attendance to program today due to being ill. Ira expressed that she would be in attendance to program tomorrow.
--- NOTE | 2024-04-25 18:28 | P.PNPSP_ITS ---
Subjective Subjective Date of Service: 04/25/24 Reason For Visit: unspecied anxiety d/o Interim History: Patient seen for follow-up today. Reports doing better anxiety has been pretty good, more manageable. She has tolerated increase in Zoloft to 150 mg daily and feels it has been helpful for her mood and anxiety. Denies any hopelessness or SI. Appetite stable. Maintaining ADLs. Sleep has been not optimal due to time constraints as patient continues to work part-time while she is at the program she picked up a shift last night from 7pm until 3am, and slept a few hours before coming in for program this morning. Feels tired but able to manage since she is ?used to it? works as a nurse in the ICU. Denies any issues with work says she feels supported by her colleagues. Denies any new issues or acute events or concerns. She is interested in starting on guanfacine as we had previously discussed to especially help with body anxiety as well as cognition we will plan to start in the afternoon. Mental Status Exam Mental Status Exam Narrative: Alert, oriented, in no acute distress. Calm, cooperative, appears tired but alert and engaged. Eye contact maintained. Mood less anxious, affect variable, mood congruent. Speech normal. Goal-directed, future-oriented, denies any hopelessness or SI. Denies any aggressive ideation or HI. No evidence of psychosis. Insight and judgment intact. Diagnostics Vital Signs (24Hr): BMI result Body Mass Index 32.8 Assessment & Plan Assessment & Plan (1) MDD (major depressive disorder): Status: Acute Code(s): F32.9 - Major depressive disorder, single episode, unspecified (2) Anxiety: Status: Acute Code(s): F41.9 - Anxiety disorder, unspecified (3) Eating disorder: Status: Acute Code(s): F50.9 - Eating disorder, unspecified Plan continue sertraline 150 mg qd start guanfacine ER 1 mg qd start vitamin D2 26329 IU weekly Routine lab work reviewed with patient EKG, routine for baseline QTc for medication considerations as indicated UDS as indicated Continue to monitor Patient educated on: diagnosis and medication risk/benefits Informed Consent: understands Reason for contiued partial hosp. stay Substantial Risk for: med/psych decompensation Certification I certify that partial hospital treatment is medically necessary due to the symptoms and problems resulting from the patient's mental illness and the failure to treat the patient at the partial hospital level of care would likely result in the patient requiring inpatient psychiatric care which could not be prevented at a less intensive level of care. Total time managing care of this patient today _30___ minutes. Discharge Plan Discharge Attending provider: Bhumi Coronado Additional Instructions: Ira has an intake appointment scheduled on May 06, 2024 at 10 AM with Cortney Marroquin at [address] [place] [address], in [place], [place] . Ira has a med provider appointment scheduled for May 30, 2024 at 9 AM with Scar Yeager via telehealth. Medications: New ergocalciferol (vitamin D2) [Vitamin D2] 1,250 mcg (50,000 unit) capsule 1,250 mcg PO QWEEK Qty: 14 0RF guanfacine 1 mg tablet extended release 24 hr 1 mg PO DAILY Qty: 20 0RF Changed sertraline 100 mg tablet 150 mg PO DAILY Qty: 45 0RF Rx Instructions: TAKE 1 TABLET BY MOUTH ONCE A DAY WITH 25 MG TABLET FOR TOTAL OF 125 MG DAILY Discontinued sertraline 25 mg tablet 25 mg PO DAILY Rx Instructions: TAKE 1 TABLET BY MOUTH ONCE A DAY WITH 100 MG TABLET = 125 MG DAILY No Action ibuprofen [Motrin] 800 mg Tablet 800 mg PO Q6H PRN (Reason: Pain) Rx Instructions: Patient takes OTC acetaminophen [Tylenol Ex Str Arthritis Pain] 500 mg Tablet 1,000 mg PO Q6H PRN (Reason: Pain) Rx Instructions: Patient takes OTC. Stand Alone Forms: Patient Portal Discharge page Print Language: Croatian
--- NOTE | 2024-04-29 23:14 | HO.PHPPROGNO ---
Subjective Subjective Date of Service: 04/29/24 Reason For Visit: unspecied anxiety d/o Interim History: Patient seen for follow-up, anticipating discharge at the end of program today.? I liked it... I will definitely be looking for support groups to join, like [facility] Started [facility] on Sunday night, so far has been well-tolerated. I do feel very calm. She has continued taking it in the evening, and anticipates it will be helpful managing her stress at work (she works 7pm-3am shift) at [employer]. Reports no acute issues or concerns. Medication compliant, medications well-tolerated. Denies any adverse effects.? Mood is stable.? Denies any hopelessness or SI. Denies thoughts of harming self or others at this time. Denies any aggressive ideation or HI. Denies any paranoia or AH or VH. Sleep, appetite, energy stable. Medication Compliance: Yes Side effects from medications: No Attending Groups: Yes Review of Systems Acute medical concerns: No Mental Status Exam Mental Status Exam Narrative: Alert, oriented, in no acute distress. Calm, cooperative. Mood stable, affect appropriate. Speech normal. Thought process linear, coherent, more goal-directed. Thought content related to stressors, future-oriented, denies any helplessness, hopelessness or SI.? No aggressive ideation or HI. No paranoia or delusional content elicited. No evidence of psychosis. Insight and judgment fair-good. Diagnostics Vital Signs (24Hr): BMI result Body Mass Index 32.8 Assessment & Plan Assessment & Plan (1) MDD (major depressive disorder): Status: Acute Code(s): F32.9 - Major depressive disorder, single episode, unspecified (2) Anxiety: Status: Acute Code(s): F41.9 - Anxiety disorder, unspecified (3) Eating disorder: Status: Acute Code(s): F50.9 - Eating disorder, unspecified (4) Nicotine dependence: Status: Acute Code(s): F17.200 - Nicotine dependence, unspecified, uncomplicated (5) Vitamin D deficiency: Status: Acute Code(s): E55.9 - Vitamin D deficiency, unspecified Plan [facility]charge from [facility] Continue regular medications sertraline 150 mg qd guanfacine ER 1 mg qd vitamin D2 50482 IU weekly Routine lab work reviewed with patient Pt declined NRT Refills sent to pharmacy Will defer further medication management to outpatient provider *Safety plan reviewed *Discharge diagnoses, treatment course, discharge plan have been reviewed with patient (including medication regime, medication management, potential side effects) as well as treatment rationale were also revisited *Discharge paperwork signed and given to patient, copy sent for scanning to chart Patient educated on: diagnosis and medication risk/benefits Informed Consent: understands Reason for contiued partial hosp. stay Substantial Risk for: stable for discharge Certification I certify that partial hospital treatment is medically necessary due to the symptoms and problems resulting from the patient's mental illness and the failure to treat the patient at the partial hospital level of care would likely result in the patient requiring inpatient psychiatric care which could not be prevented at a less intensive level of care. Total time managing care of this patient today __30__ minutes. Discharge Plan Discharge Attending provider: Bhumi Coronado Additional Instructions: Ira has an intake appointment scheduled on May 06, 2024 at 10 AM with Cortney Marroquin at [address] [place] [address], in [place], [place] . Ira has a med provider appointment scheduled for May 30, 2024 at 9 AM with Scar Yeager via telehealth. Medications: New ergocalciferol (vitamin D2) [Vitamin D2] 1,250 mcg (50,000 unit) capsule 1,250 mcg PO QWEEK Qty: 14 0RF guanfacine 1 mg tablet extended release 24 hr 1 mg PO DAILY Qty: 20 0RF Changed sertraline 100 mg tablet 150 mg PO DAILY Qty: 45 0RF Discontinued sertraline 25 mg tablet 25 mg PO DAILY Rx Instructions: TAKE 1 TABLET BY MOUTH ONCE A DAY WITH 100 MG TABLET = 125 MG DAILY No Action ibuprofen [Motrin] 800 mg Tablet 800 mg PO Q6H PRN (Reason: Pain) Rx Instructions: Patient takes OTC acetaminophen [Tylenol Ex Str Arthritis Pain] 500 mg Tablet 1,000 mg PO Q6H PRN (Reason: Pain) Rx Instructions: Patient takes OTC. Stand Alone Forms: Patient Portal Discharge page Patient Education: Depression (DC), Anxiety (ED) Print Language: Kiswahili
== END 2024-04-29 23:59 | disposition home or self-care (01) ==
LOC: HO.PHPA 12:15
PROVIDERS: Visit Provider Psychiatry & Neurology Psychiatry
DX: F32.9 Major depressive disorder, single episode, unspecified (principal); F50.9 Eating disorder, unspecified; F41.9 Anxiety disorder, unspecified; Z79.899 Other long term (current) drug therapy
CPT/HCPCS: 90791; 90853